=== PATIENT | male | born 1970 | race Caucasian/White ===

== ENCOUNTER 2017-05-02 13:50 | Inpatient (IN) | payer OTHER ==
[~2017-05-02] VITALS: Ht 182.9 cm; Wt 82.3 kg
[2017-05-02 14:18] VITALS: BP 163/92
[2017-05-02 14:55] LABS: BASO % 0.5 % (0.0-1.0); EOS % 0.2 % (1.0-4.0); HEMATOCRIT 46.3 % (42.0-52.0); HEMOGLOBIN 16.3 g/dl (14.0-18.0); LYMPH % 44.1 % (27.0-41.0); MEAN CELL VOLUME 89.2 fl (80.0-94.0); MEAN CORPUSCULAR HGB 31.4 pg (27.0-31.0); MEAN CORPUSCULAR HGB CONC 35.2 g/dl (33.0-37.0); MEAN PLATELET VOLUME 10.2 fl (9.6-12.3); MONO # 0.6 10*3/uL (0.1-1.0); MONO % 14.2 % (3.0-9.0); NEUT # 1.8 10*3/uL (2.3-7.9); NEUT % 40.8 % (47.0-73.0); PLATELET COUNT AUTOMATED 137 10*3/uL (130-400); RED BLOOD COUNT 5.19 10*6/uL (4.50-5.90); RED CELL DISTRI WIDTH 12.6 % (0-14.5); WHITE BLOOD COUNT 4.4 10*3/uL (4.8-10.8)
[2017-05-02 15:11] LABS: ALBUMIN 3.8 gm/dl (3.1-4.5); ALKALINE PHOSPHATASE 75 U/L (45-117); BUN 4 mg/dl (7-24); CHLORIDE 102 mmol/L (98-107); CREATININE 0.86 mg/dL (0.70-1.30); POTASSIUM 3.7 mmol/L (3.5-5.1); SGOT/AST 192 IU/L (3-35); SGPT/ALT 219 U/L (12-78); SODIUM 139 mmol/L (136-145); TOTAL PROTEIN 8.4 gm/dL (6.4-8.2)
[2017-05-02 15:23] LABS: BILIRUBIN 1+ (NEGATIVE); BLOOD 1+ (NEGATIVE); CLARITY SL CLOUDY (CLEAR); COLOR YELLOW (YELLOW); GLUCOSE NEGATIVE (NEGATIVE); KETONE TRACE (NEGATIVE); LEUKO ESTERASE NEGATIVE (NEGATIVE); NITRITE NEGATIVE (NEGATIVE)
[2017-05-02 15:36] LABS: URINE AMPHETAMINES < 1000 (1000ng/ml); URINE BARBITURATES < 200 (200ng/ml); URINE BENZODIAZEPINES < 200 (200ng/ml); URINE CANNABINOIDS (THC) < 50 (50ng/ml); URINE COCAINE < 300 (300ng/ml); URINE METHADONE < 300 (300ng/ml); URINE OPIATES < 300 (300ng/ml)
[2017-05-02 15:40] LABS: URINE PHENCYCLIDINE < 25 (25ng/ml)
[2017-05-02 15:43] LABS: BACTERIA TRACE; FINE GRANULAR CAST 0-1; MUCOUS TRACE; WBC 0-2 wbc/hpf (0-5)
[2017-05-02 15:59] LABS: INTERNATIONAL NORM RATIO 0.9 (2.0-3.5)
[2017-05-02 16:31] VITALS: BP 171/101
[2017-05-02 20:00] VITALS: BP 153/95
[2017-05-03] VITALS: BP 170/102
[2017-05-03 04:00] VITALS: BP 181/101
[2017-05-03 07:51] VITALS: BP 164/100
[2017-05-03] MEDS ORDERED: EFFEXOR-XR75 MG PO (11:30)
[2017-05-03] MEDS ORDERED: NORVASC10 MG PO (11:31)
[2017-05-03 14:05] VITALS: BP 162/102
[2017-05-03 18:00] VITALS: BP 160/104
[2017-05-03 20:00] VITALS: BP 172/106
[2017-05-04] VITALS: BP 155/106
[2017-05-04 08:00] VITALS: BP 142/90
[2017-05-04 12:00] VITALS: BP 136/90
[2017-05-04 16:00] VITALS: BP 117/78
[2017-05-04 20:00] VITALS: BP 125/71
[2017-05-05] VITALS: BP 132/97
[2017-05-05 06:11] LABS: BASO % 0.5 % (0.0-1.0); EOS # 0.1 10*3/uL (0.0-0.4); EOS % 1.9 % (1.0-4.0); HEMATOCRIT 47.9 % (42.0-52.0); HEMOGLOBIN 17.1 g/dl (14.0-18.0); LYMPH # 1.9 10*3/uL (1.3-4.4); LYMPH % 44.3 % (27.0-41.0); MEAN CELL VOLUME 87.7 fl (80.0-94.0); MEAN CORPUSCULAR HGB 31.3 pg (27.0-31.0); MEAN CORPUSCULAR HGB CONC 35.7 g/dl (33.0-37.0); MEAN PLATELET VOLUME 10.6 fl (9.6-12.3); MONO # 0.6 10*3/uL (0.1-1.0); MONO % 13.5 % (3.0-9.0); NEUT # 1.7 10*3/uL (2.3-7.9); NEUT % 39.3 % (47.0-73.0); PLATELET COUNT AUTOMATED 133 10*3/uL (130-400); RED BLOOD COUNT 5.46 10*6/uL (4.50-5.90); RED CELL DISTRI WIDTH 12.3 % (0-14.5); WHITE BLOOD COUNT 4.3 10*3/uL (4.8-10.8)
[2017-05-05 08:00] VITALS: BP 146/91
[2017-05-05] MEDS ORDERED: NATURE'S BLEND100 M2 PO (10:18)
[2017-05-05] MEDS ORDERED: METOPROLOL TART50 M1 PO (10:18)
[2017-05-05] MEDS ORDERED: NORVASC10 MG PO (10:19)
[2017-05-05 12:00] VITALS: BP 137/83
[2017-05-05 16:00] VITALS: BP 114/64
[2017-05-05 20:00] VITALS: BP 125/81
[2017-05-06] VITALS: BP 127/77
[2017-05-06 08:00] VITALS: BP 117/79
[2017-05-06 12:00] VITALS: BP 119/70
[2017-05-06 16:00] VITALS: BP 114/76
== END 2017-05-06 16:00 | DRG 897 ==
LOC: ED 13:50 → 4E 14:56 → EDHOLD 14:56 → 4E 15:53
PROVIDERS: Emergency Medicine; Student in an Organized Health Care Education/Training Program; ADMIT Internal Medicine
DX: F10.239 Alcohol dependence with withdrawal, unspecified (principal); I10 Essential (primary) hypertension; D72.819 Decreased white blood cell count, unspecified; F17.210 Nicotine dependence, cigarettes, uncomplicated; R00.0 Tachycardia, unspecified; R74.0 Nonspecific elevation of levels of transaminase and lactic acid dehydrogenase [LDH]; R25.1 Tremor, unspecified; F41.1 Generalized anxiety disorder; Z84.89 Family history of other specified conditions; Z71.6 Tobacco abuse counseling; Z80.0 Family history of malignant neoplasm of digestive organs